=== PATIENT | female | born 1990 | race Caucasian/White ===

== ENCOUNTER 2019-05-11 18:54 | Emergency (ER) | payer OTHER ==
--- NOTE | 2019-05-11 20:09 | ED Physician Documentation ---
Ankle Injury - HISTORIAN Historian: patient - HPI Stated Complaint: Lt ankle pain/swelling Chief Complaint: Ankle Injury Additional Information: Patient is a pleasant 29 year old female who presents to the ER with c/o left ankle injury. Patient states that she was helping her put a cow back in the gate and she twisted her ankle; wearing flip flops. She denies any injury above the ankle; neurovasculars intact. Swelling to the lateral left ankle. Onset: minutes Where: home Severity: mild r: twist, barefoot (flip flops) Associated Symptoms:: swelling, snapping sensation Modifying Factors:: pain on movement - ROS CONST: no problems CVS/RESP: none NEURO: denies: headache GI/: denies: nausea, vomiting MS/SKIN/LYMPH: none - PAST HX Past History: none Immunizations: UTD Allergies/Adverse Reactions: Allergies Allergy/AdvReac Type Severity Reaction Status Date / Time Penicillins Allergy Verified 05/11/19 19:16 Home Medications: Ambulatory Orders Medication Instructions Recorded Desogestrel-Ethinyl Estradiol 0.15 mg PO DAILY 05/11/19 [Reclipsen 28 Day Tablet] - SOCIAL HX Smoking History: non-smoker Alcohol Use: none Drug Use: none - FAMILY HX Family History: none - VITAL SIGNS Vital Signs: Vital Signs Temp Pulse Resp BP Pulse Ox 114 H 16 146/96 99 05/11/19 18:54 05/11/19 18:54 05/11/19 18:54 05/11/19 18:54 - REVIEWED ASSESSMENTS Nursing Assessment Reviewed: Yes Vitals Reviewed: Yes Procedures Location: Left ankle Hand-Made Type: OCL Splint: sugar-tong Pre-Proc Neuro Vasc Exam: normal Post-Proc Neuro Vasc Exam: normal Progress - Progress Progress: Offered referral here to Podiatry for follow up but would like to go to [place] because she works there. ED Results Lab/Radiology - Radiology Radiology Impressions: HISTORY: 29-year-old female with left ankle pain after injury COMPARISON: None available. TECHNIQUE: 3 views of the left ankle were performed. FINDINGS: There is a mildly displaced transverse fracture of the distal fibula 6 mm distal to the mortise. No other fractures are identified about the left ankle. The mortise is intact. There is a small os trigonum. There is a tiny plantar calcaneal bone spur. IMPRESSION: Mildly displaced transverse fracture of the left distal fibula. - Orders Orders: ED Orders Category Date Time Status ANKLE 3 VIEWS OR MORE [RAD] Stat Exams 05/11/19 Ordered Ankle Injury Physical Exam - Physical Exam General Appearance: alert, mild distress Foot: bilateral foot: non-tender, normal inspection, normal range of motion, no evidence of injury Ankle: left: limited range of motion, pain, soft tissue tenderness, swelling Gait: unable to bear weight Neuro: sensation nml, motor nml Vascular: no vascular compromise Leg/Knee/Thigh: uninjured above ankle Skin: intact, warm, dry Head/ENT: nml inspection, pharynx nml Neck/Back: nml inspection, non-tender Resp/CVS: breath sounds nml, heart sounds nml Discharge Clincal Impression: Fracture of distal fibula Additional Instructions: Wear splint and use crutches- no weight bearing to the left ankle Ice, Elevate, and Rest Alternate Tylenol and Ibuprofen as needed for pain Use Tramadol 50mg by mouth every 6 hours as needed for breakthrough pain Follow up with ortho (take disc to appt. with your [facility] [phone] [facility] [phone] If you change your mind and want to see Cal[employer] Helper at the clinic call Condition: Good Disposition: 01 HOME, SELF-CARE Decision to Admit: NO Decision Time: 20:42
[2019-05-11 22:17] VITALS: BP 138/88
--- NOTE | 2019-05-12 09:28 | Diagnostic Imaging Report ---
SHAKIRA ABDI [facility] [address] [facility] [address] [address] Report Submission Date: May 11, 2019 7:50:26 PM CDT Patient Study Name: CHARAN JERONIMO Date: May 11, 2019 7:20:16 PM CDT Modality Type: DX Gender: F Description: ANKLE 3 VIEWS OR MORE : 88 Institution: [facility] Physician: SHAKIRA ABDI HISTORY: 29-year-old female with left ankle pain after injury COMPARISON: None available. TECHNIQUE: 3 views of the left ankle were performed. FINDINGS: There is a mildly displaced transverse fracture of the distal fibula 6 mm distal to the mortise. No other fractures are identified about the left ankle. The mortise is intact. There is a small os trigonum. There is a tiny plantar calcaneal bone spur. IMPRESSION: Mildly displaced transverse fracture of the left distal fibula. Electronically signed on May 11, 2019 7:50:26 PM CDT by: Junito GARNER
== END 2019-05-11 20:30 | disposition home or self-care (01) ==
LOC: ED 18:54
DX: S82.402A Unspecified fracture of shaft of left fibula, initial encounter for closed fracture (principal); X50.0XXA Overexertion from strenuous movement or load, initial encounter
CPT/HCPCS: 73610; 99281; 99282